=== PATIENT | female | born 2000 | race American Indian/Alaskan Native ===

== ENCOUNTER 2022-02-15 20:09 | Emergency (ER) | payer SELFPAY ==
[2022-02-15 21:43] LABS: Bacteria,Urine 1+ /HPF (Negative); Mucus,Urine 1+ /HPF
[2022-02-15 21:44] LABS: RBC,Urine > 182.0 /HPF (0.0-6.0)
[2022-02-15 21:45] LABS: Color,Urine Yellow (Yellow)
[2022-02-15 21:46] LABS: Bilirubin,Urine Negative (Negative); Blood,Urine Large (Negative)
[2022-02-15 21:48] LABS: Basophils # (Auto) 0.1 K/mm3 (0.0-0.1); Basophils % (Auto) 0.7 % (0.0-1.8); Eosinophils # (Auto) 0.4 K/mm3 (0.0-0.4); Eosinophils % (Auto) 4.1 % (0.0-4.3); Hematocrit 40.5 % (30.3-42.9); Hemoglobin 13.1 gm/dl (10.1-14.3); Lymphocytes # (Auto) 1.8 K/mm3 (1.2-5.4); Lymphocytes % (Auto) 21.2 % (13.4-35.0); Mean Corpuscular HGB Conc 33 % (30-34); Mean Corpuscular Volume 82 fl (79-97); Monocytes # (Auto) 0.9 K/mm3 (0.0-0.8); Monocytes % (Auto) 10.3 % (0.0-7.3); Platelet Count 257 K/mm3 (140-440); Red Blood Count 4.93 M/mm3 (3.65-5.03); Red Cell Distribution Width 15.3 % (13.2-15.2)
[2022-02-15 22:19] LABS: Alanine Aminotransferase 12 units/L (7-56); Albumin 4.7 g/dL (3.9-5); BUN/Creatinine Ratio 13; Blood Urea Nitrogen 10 mg/dL (7-17); Calcium 9.8 mg/dL (8.4-10.2); Hemolysis Index 1
--- NOTE | 2022-02-16 06:38 | Emergency Department Report ---
HPI - General Chief Complaint: Abdominal Pain PUI?: No Time Seen by Provider: 02/16/22 06:19 - HPI HPI: 21yo F, G1PO, LMP 12/30/21, presents for plaints of vaginal bleeding lower abdominal cramping. Patient reports her symptoms started less than 24 hours ago. She states previous to that she had engaged in penile vaginal sexual intercourse. Ever since she had no bleeding immediately after engaging in sexual intercourse. 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 Vaginal bleeding is light and is currently spotting. No dizziness no lightheadedness no chest pain or shortness of breath no difficulty breathing or palpitations. She reports a history of chlamydia several years ago. She states that she had a UTI for which she was treated twice approximately 2 months ago with Macrobid and another unknown antibiotic. She denies any current UTI symptoms. Pain currently 0 out of 10. ED Past Medical Hx - Past Medical History Previous Medical History?: No - Surgical History Past Surgical History?: No - Social History Smoking Status: Never Smoker Substance Use Type: None ED Review of Systems ROS: Stated complaint: 6WKS PREG/BLEEDING Other details as noted in HPI Comment: All other systems reviewed and negative Constitutional: no symptoms reported Respiratory: no symptoms reported Cardiovascular: denies: chest pain, palpitations, dyspnea on exertion, orthopnea, edema, syncope, paroxysmal nocturnal dyspnea, other Gastrointestinal: abdominal pain. denies: nausea, diarrhea, constipation, hematemesis, melena, hematochezia Genitourinary: denies: urgency, dysuria, frequency, hematuria, discharge, abnormal menses, dyspareunia Musculoskeletal: denies: back pain, joint swelling, arthralgia, myalgia Skin: denies: rash, lesions, change in color, change in hair/nails, pruritus, other Neurological: denies: headache, weakness, paresthesias, confusion, abnormal gait, vertigo, other Psychiatric: denies: anxiety, depression, auditory hallucinations, visual hallu cinations, homicidal thoughts, suicidal thoughts Hematological/Lymphatic: denies: easy bleeding, easy bruising, swollen glands Physical Exam - Physical Exam Vital Signs: Vital Signs 02/15/22 02/16/22 02/16/22 21:08 05:52 05:55 Temperature 98.3 F Pulse Rate 73 79 Respiratory 18 13 Rate Blood Pressure Blood Pressure 121/71 [Left] O2 Sat by Pulse 97 100 96 Oximetry 02/16/22 06:01 Temperature Pulse Rate 75 Respiratory 18 Rate Blood Pressure 140/76 Blood Pressure [Left] O2 Sat by Pulse 100 Oximetry General: Gen: pt is well appearing, no acute distress HEENT: Normocephalic atraumatic pupils equally round and reactive to light extraocular muscles intact sclera anicteric Neck: Full range of motion, no midline spinal tenderness palpation, no JVD, no carotid bruits, no nuchal rigidity CVS: S1-S2 regular rate and rhythm with no gallops rubs or murmurs, chest wall nontender Pulmonary: Clear to auscultation bilaterally, no wheezes rales or rhonchi Abdomen: Soft nondistended nontender no guarding or rebound tenderness, no palpable deformities or step-offs, normal active bowel sounds, no hepatosplenomegaly, no pulsatile masses : Deferred Extremities: No cyanosis no clubbing no edema, intact distal peripheral pulses, Integumentary: Skin normal, no petechia no purpura no abscess no lacerations no evidence of trauma no evidence of infection Neuro: Patient is awake alert and oriented to person place time situation, mentating well, cranial nerves II through XII intact, no focal neurodeficits, sensation grossly tact Psych: Calm cooperative, mood affect normal ED Course Vital Signs 02/15/22 02/16/22 02/16/22 21:08 05:52 05:55 Temperature 98.3 F Pulse Rate 73 79 Respiratory 18 13 Rate Blood Pressure Blood Pressure 121/71 [Left] O2 Sat by Pulse 97 100 96 Oximetry 02/16/22 06:01 Temperature Pulse Rate 75 Respiratory 18 Rate Blood Pressure 140/76 Blood Pressure [Left] O2 Sat by Pulse 100 Oximetry - Reevaluation(s) Reevaluation #1: 02/16/22 11:13 Patient is comfortable and well-appearing. Denies any complaints at this time. Denies any active or worsening bleeding. - Consultations Consultation #1: 02/16/22 08:59am: Case discussed with policewoman, Dr. Marie. call center receptionist policewoman. Per his verbal report, patient is of unknown patient at this time although she still must need to be ruled out for an ectopic . He is advising that the patient undergo repeat hCG in 48 hours, and then again after that 48 hours after repeat was obtained. Patient should go to her new policewoman office to schedule outpatient follow-up appointment for repeat hCG. ED Medical Decision Making - Lab Data Result diagrams: 02/15/22 21:24 02/15/22 21:24 - Radiology Data Radiology results: report reviewed - Medical Decision Making 21-year-old female, , last menstrual cycle of December 30, 2021, presents for evaluation of what she states is resolved vaginal bleeding and transient lower abdominal pain. Vital signs stable. Patient is Rh+. CBC unremarkable. Serum hCG demonstrates her quant is 263.2. Transvaginal ultrasound demonstrates no IUP no acute pathology. Case reviewed with on-call policewoman, . He advises the patient to undergo repeat serum hCG on Wednesday, February 18, 2022, and then again on Wednesday, February 20, 2022. This information was discussed at length with the patient and she verbalized understanding. She was reassessed multiple times remains very comfortable and well-appearing. No further emergent work-up warranted at this time. Patient stable for discharge to home. Critical care attestation.: If time is entered above; I have spent that time in minutes in the direct care of this critically ill patient, excluding procedure time. ED Disposition Clinical Impression: of unknown anatomic location Disposition: 01 HOME / SELF CARE / HOMELESS Is pt being admited?: No Does the pt Need Aspirin: No Condition: Stable Instructions: and the Partner's Role, Abdominal Pain (ED) Additional Instructions: You will need to have your hormone level, which was checked by blood, rechecked in 48 hours. Please contact your policewoman office this morning to schedule an immediate appointment so that this may be rechecked in 2 days which is on Wednesday, February 18, 2022. Your hormone levels will also need to be rechecked again 2 days after that on Sunday, February 20, 2022. It is very important that this be done by your policewoman. Your hormone level today was 263.2. Please provide this number as a reference number to your policewoman office when you are going to have your hormone level repeated. If you are not able to have it checked by your policewoman, you will need to have this done at an urgent care center or an emergency department. Abstain from all vaginal sexual intercourse until you are cleared by your policewoman. Take Tylenol as needed for pain. Observe your symptoms very carefully. Return to the nearest emergency department soon as possible if you develop severe or worsening bleeding, severe worsening pain, vomiting, any fever 100.4 Fahrenheit or higher, and be to tolerate liquids or solids, or if any other new worrisome symptoms develop
--- NOTE | 2022-02-16 08:08 | Ultrasound Report ---
ULTRASOUND PELVIS INDICATION: lmp 12/30/21; +p/w vag bleeding, pain; confirm IUP. TECHNIQUE: Transabdominal. Duplex Color Doppler used: Yes. COMPARISON: None available FINDINGS: Uterus: Present. Size: 8.3 x 4.4 x 3.9 cm. Endometrial complex: Normal measuring 0.64 cm. Mass lesions: None. Additional findings: None. Right Ovary -- Normal. Blood flow: Normal. Cyst or mass: None. Left Ovary-- Normal. Blood flow: Normal. Cyst or mass: None. Urinary Bladder: Normal. Free Fluid: None. Additional Findings: None. IMPRESSION: 1. Negative for intrauterine . 2. No adnexal abnormality. Signer Name: Jame Odom MD Signed: 02/16/2022 8:03 AM Workstation Name: [id number]
[2022-02-16 10:44] VITALS: BP 118/74
== END 2022-02-16 11:39 | disposition home or self-care (01) ==
LOC: ED 20:09
DX: O20.8 Other hemorrhage in early pregnancy (principal); R10.30 Lower abdominal pain, unspecified; Z3A.01 Less than 8 weeks gestation of pregnancy
CPT/HCPCS: 36415; 76801; 80053; 81001; 84702; 85025; 86900; 86901; 87086; 99284